=== PATIENT | male | born 1960 | race Caucasian/White ===

== ENCOUNTER 2018-01-25 10:11 | Inpatient (IN) | payer BC ==
[~2018-01-25] VITALS: Ht 177.8 cm; Wt 92.1 kg
--- NOTE | ~2018-01-25 | EKG ---
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
[~2018-01-25 10:11] MED LIST: ASPIR 8181 MG PO; FISH OIL 1,001000 M2 PO; LIPITOR10 MG PO; NORCO 5-325 TA1 EACH PO; ONDANSETRON HCL4 M2 PO
[2018-01-25 10:14] VITALS: BP 186/100
[2018-01-25 10:39] LABS: ABSOLUTE NEUTROPHILS 3.2 thou/uL (1.4-8.2); BASOPHILS 1.4 % (0.0-2.0); EOSINOPHILS 3.8 % (0.0-3.0); HEMATOCRIT 41.9 % (42.0-52.0); HEMOGLOBIN 13.9 gm/dL (14.0-18.0); LYMPHOCYTES 21.5 % (24.0-44.0); MCHC 33.2 g/dL (28.0-37.0); MCV 81.3 fL (80.0-100.0); MONOCYTES 8.4 % (1.0-8.0); PLATELET COUNT 223 thou/uL (150-400); POLYS 64.9 % (36.0-66.0); RBC 5.16 mil/uL (4.50-6.00); RDW 15.1 % (10.5-14.5)
[2018-01-25 10:47] LABS: ANION GAP 7 mmol/L (7-16); BUN 18 mg/dL (7-18); CALCIUM 9.9 mg/dL (8.5-10.1); CHLORIDE 105 mmol/L (98-107); CO2 26 mmol/L (21-32); CREATININE 0.8 mg/dL (0.7-1.3); GLUCOSE 99 mg/dL (74-106); POTASSIUM 4.8 mmol/L (3.5-5.1); SODIUM 138 mmol/L (136-145)
[2018-01-25 10:56] LABS: TROPONIN-I < 0.04 ng/mL (<0.06)
[2018-01-25 16:33] VITALS: BP 128/87
[2018-01-25 18:33] VITALS: BP 152/108
[2018-01-25 20:00] VITALS: BP 147/92
[2018-01-25 23:56] VITALS: BP 123/88
[2018-01-26 04:00] VITALS: BP 129/91
[2018-01-26 08:00] VITALS: BP 142/92
[2018-01-26] MEDS ORDERED: PREDNISONE 20 M20 MG PO (08:12)
[2018-01-26] MEDS ORDERED: TOPROL XL25 MG PO (08:12)
[2018-01-26] MEDS ORDERED: AUGMENTIN 875-1 EACH PO (08:12)
[2018-01-26 08:39] VITALS: BP 142/92
== END 2018-01-26 09:30 | disposition home or self-care (01) | DRG 305 ==
LOC: ER 10:11 → EROBS 12:36 → 3W 18:08 → ENTRNSPT 01-26 09:14 → 3W 01-26 09:30
PROVIDERS: Nurse Practitioner
DX: I16.0 Hypertensive urgency (principal); E78.00 Pure hypercholesterolemia, unspecified; J32.9 Chronic sinusitis, unspecified; Z87.891 Personal history of nicotine dependence
CPT/HCPCS: 10879

== ENCOUNTER → 2020-03-23 | Outpatient (CLI) | payer OTHER ==
[~2020-03-23] MED LIST changes: +AUGMENTIN 875-1 EACH PO; +PREDNISONE 20 M20 MG PO; +TOPROL XL25 MG PO
== END ==
LOC: CAT 11:44
PROVIDERS: ATTEND Nurse Practitioner
DX: K57.30 Diverticulosis of large intestine without perforation or abscess without bleeding (principal); N28.1 Cyst of kidney, acquired; R91.1 Solitary pulmonary nodule; J98.11 Atelectasis